=== PATIENT | male | born 1965 | race Caucasian/White ===

== ENCOUNTER 2016-03-22 10:43 | Inpatient (IN) | payer MEDICAID, OTHER ==
[2016-03-22] VITALS (7 sets, daily range): BP systolic 120–160; BP diastolic 82–90
[~2016-03-22] VITALS: Ht 180.3 cm; Wt 115.3 kg
[2016-03-22 11:15] LABS: ANION GAP 12 mmol/L (8-16); CALCIUM, TOTAL 8.2 mg/dL (8.8-10.5); CARBON DIOXIDE 26 mmol/L (22-29); CHLORIDE 100 mmol/L (98-107); CREATININE 0.91 mg/dL (0.60-1.30); GLOMERULAR FILTR. RATE CALC > 60 mL/min (>60); POTASSIUM 3.9 mmol/L (3.5-5.1); SODIUM SERUM 138 mmol/L (136-145); UREA NITROGEN, BLOOD 15 mg/dL (7-18)
[2016-03-22 11:18] LABS: BASOPHILS % (AUTO) 0.7 % (0.0-2.0); EOSINOPHILS % (AUTO) 0.3 % (1.0-6.0); HEMATOCRIT 46.2 % (41-53); HEMOGLOBIN 15.4 g/dL (13.5-17.5); LYMPHOCYTES # (AUTO) 3.2 K/uL (1.0-4.8); LYMPHOCYTES % (AUTO) 43.1 % (22.0-44.0); MEAN CORPUSCULAR HEMOGLOBIN 29.7 pg (26.0-34.0); MEAN CORPUSCULAR HGB CONC 33.3 G/dL (31.0-37.0); MEAN CORPUSCULAR VOLUME 89 fL (80-100); MONOCYTES # (AUTO) 0.6 K/uL (0.1-1.0); MONOCYTES % (AUTO) 8.3 % (2.0-9.0); NEUTROPHILS # (AUTO) 3.5 K/uL (1.8-7.7); NEUTROPHILS % (AUTO) 47.6 % (40.0-70.0); PLATELET COUNT (AUTO) 193 K/uL (150-450); RED BLOOD CELL COUNT(AUTO) 5.17 MIL/uL (4.50-5.90); RED CELL DISTRIBUTION WIDTH 15.1 % (11.5-14.5); WHITE BLOOD COUNT (AUTO) 7.5 K/uL (4.5-11.0)
[2016-03-22 11:21] LABS: ALANINE AMINOTRANSFERASE 140 U/L (12-78); ALBUMIN 3.8 g/dL (3.4-5.0); ASPARTATE AMINOTRANSFERASE 70 U/L (15-37); BILIRUBIN,TOTAL 0.4 mg/dL (0.1-1.0); TOTAL PROTEIN, SERUM 7.8 g/dL (6.4-8.2)
[2016-03-22] MEDS ORDERED: LORazepam 1 MG TABLET PO ONE (12:00)
[2016-03-22] MEDS ORDERED: HALOPERIDOL 5 MG TABLET PO PRN (12:30)
[2016-03-22] MEDS: LORazepam 2 MG TABLET PO PRN (13:37)
[2016-03-22] MEDS ORDERED: LORazepam 2 MG TABLET PO ONE (15:45)
[2016-03-22] MEDS ORDERED: INFLUENZA VIRUS VACCINE QVS 2016-17 (3YR+)/PF 60 MCG/0.5 ML SYRINGE IM ONE (17:30)
[2016-03-22] MEDS: CloNIDine HCL 0.1 MG TABLET PO PRN (18:06)
[2016-03-22] MEDS ORDERED: LORazepam 2 MG TABLET PO PRN (19:00)
[2016-03-22] MEDS: ZOLPIDEM TARTRATE 10 MG TABLET PO PRN (20:21)
[2016-03-23] VITALS (7 sets, daily range): BP systolic 119–143; BP diastolic 69–86
[2016-03-23] MEDS: LORazepam 2 MG TABLET PO PRN (06:43)
[2016-03-23] MEDS ORDERED: LORazepam 2 MG TABLET PO PRN (07:00)
[2016-03-23] MEDS ORDERED: ACETAMINOPHEN 325 MG TABLET PO PRN (08:15)
[2016-03-23] MEDS: MULTIVITAMINS WITH MINERALS, THERAPEUTIC TABLET PO SCH (08:41)
[2016-03-23] MEDS: FLUoxetine HCL 20 MG CAPSULE PO SCH (08:41)
[2016-03-23] MEDS: MAGNESIUM OXIDE 400 MG TABLET PO SCH (08:41)
[2016-03-23] MEDS: GABAPENTIN 300 MG CAPSULE PO SCH ×3 (08:41→16:48)
[2016-03-23] MEDS: FOLIC ACID 1 MG TABLET PO SCH (08:41)
[2016-03-23] MEDS: LORazepam 2 MG TABLET PO SCH ×4 (08:41→20:27)
[2016-03-23] MEDS: THIAMINE HCL 100 MG TABLET PO SCH (08:41)
[2016-03-23] MEDS: NICOTINE 7 MG/24 HOUR PATCH TD SCH (08:42)
[2016-03-23] MEDS: IBUPROFEN 400 MG TABLET PO PRN (08:48)
[2016-03-23] MEDS: ZOLPIDEM TARTRATE 10 MG TABLET PO PRN (21:05)
[2016-03-24] VITALS (9 sets, daily range): BP systolic 109–158; BP diastolic 68–111
[2016-03-24 08:24] LABS: HEMOGLOBIN A1C 5.9 % (4.5-6.2)
[2016-03-24] MEDS: FOLIC ACID 1 MG TABLET PO SCH (08:28)
[2016-03-24] MEDS: MAGNESIUM OXIDE 400 MG TABLET PO SCH (08:28)
[2016-03-24] MEDS: FLUoxetine HCL 20 MG CAPSULE PO SCH (08:28)
[2016-03-24] MEDS: LORazepam 2 MG TABLET PO SCH ×4 (08:28→20:11)
[2016-03-24] MEDS: THIAMINE HCL 100 MG TABLET PO SCH (08:28)
[2016-03-24] MEDS: NICOTINE 7 MG/24 HOUR PATCH TD SCH (08:28)
[2016-03-24] MEDS: MULTIVITAMINS WITH MINERALS, THERAPEUTIC TABLET PO SCH (08:28)
[2016-03-24 08:38] LABS: CHOL/HDL RATIO 2.8 (4.2-7.3); THYROID STIMULATING HORMONE 4.63 uIU/mL (0.36-3.74)
[2016-03-24] MEDS: GABAPENTIN 300 MG CAPSULE PO SCH ×3 (09:31→16:08)
[2016-03-24] MEDS: IBUPROFEN 400 MG TABLET PO PRN (11:37)
[2016-03-24] MEDS: CloNIDine HCL 0.1 MG TABLET PO PRN (16:16)
[2016-03-24] MEDS: ZOLPIDEM TARTRATE 10 MG TABLET PO PRN (21:18)
[2016-03-25 01:50] VITALS: BP 125/73
[2016-03-25 01:52] VITALS: BP 125/73
[2016-03-25] MEDS ORDERED: LORazepam 1 MG TABLET PO PRN (07:00)
[2016-03-25 08:39] VITALS: BP 112/68
[2016-03-25 08:40] VITALS: BP 112/68
[2016-03-25] MEDS: NICOTINE 7 MG/24 HOUR PATCH TD SCH (09:07)
[2016-03-25] MEDS: LORazepam 1 MG TABLET PO SCH ×4 (09:07→20:13)
[2016-03-25] MEDS: FOLIC ACID 1 MG TABLET PO SCH (09:07)
[2016-03-25] MEDS: MAGNESIUM OXIDE 400 MG TABLET PO SCH (09:08)
[2016-03-25] MEDS: FLUoxetine HCL 20 MG CAPSULE PO SCH (09:08)
[2016-03-25] MEDS: THIAMINE HCL 100 MG TABLET PO SCH (09:08)
[2016-03-25] MEDS: GABAPENTIN 300 MG CAPSULE PO SCH ×3 (09:08→16:04)
[2016-03-25] MEDS: MULTIVITAMINS WITH MINERALS, THERAPEUTIC TABLET PO SCH (09:08)
[2016-03-25 11:08] LABS: HEPATITIS Bs ANTIGEN SCREEN P Negative (Negative); HEPATITIS C AB SCREEN <0.1 s/co ratio (0.0-0.9)
[2016-03-25 16:00] VITALS: BP 126/69
[2016-03-25 16:05] VITALS: BP 126/69
[2016-03-25] MEDS: ZOLPIDEM TARTRATE 10 MG TABLET PO PRN (21:13)
[2016-03-26 07:00] VITALS: BP 141/89
[2016-03-26 07:13] VITALS: BP 141/89
[2016-03-26 08:00] VITALS: BP 137/87
[2016-03-26 08:41] VITALS: BP 137/87
[2016-03-26] MEDS: FLUoxetine HCL 20 MG CAPSULE PO SCH (09:09)
[2016-03-26] MEDS: FOLIC ACID 1 MG TABLET PO SCH (09:09)
[2016-03-26] MEDS: MAGNESIUM OXIDE 400 MG TABLET PO SCH (09:09)
[2016-03-26] MEDS: THIAMINE HCL 100 MG TABLET PO SCH (09:09)
[2016-03-26] MEDS: MULTIVITAMINS WITH MINERALS, THERAPEUTIC TABLET PO SCH (09:09)
[2016-03-26] MEDS: NICOTINE 7 MG/24 HOUR PATCH TD SCH (09:09)
[2016-03-26] MEDS: LORazepam 1 MG TABLET PO PRN ×2 (09:09→13:10)
[2016-03-26] MEDS: GABAPENTIN 300 MG CAPSULE PO SCH ×3 (09:09→16:49)
[2016-03-26 16:10] VITALS: BP 140/85
[2016-03-26 16:15] VITALS: BP 140/85
[2016-03-27 07:10] VITALS: BP 140/90
[2016-03-27 07:12] VITALS: BP 140/90
[2016-03-27 08:38] VITALS: BP 132/78
[2016-03-27] MEDS: MAGNESIUM OXIDE 400 MG TABLET PO SCH (09:39)
[2016-03-27] MEDS: FLUoxetine HCL 20 MG CAPSULE PO SCH (09:39)
[2016-03-27] MEDS: GABAPENTIN 300 MG CAPSULE PO SCH ×2 (09:39→12:57)
[2016-03-27] MEDS: FOLIC ACID 1 MG TABLET PO SCH (09:39)
[2016-03-27] MEDS: THIAMINE HCL 100 MG TABLET PO SCH (09:39)
[2016-03-27] MEDS: MULTIVITAMINS WITH MINERALS, THERAPEUTIC TABLET PO SCH (09:39)
[2016-03-27] MEDS: NICOTINE 7 MG/24 HOUR PATCH TD SCH (09:43)
[2016-03-27] MEDS ORDERED: FLUO-191 PO (12:37)
[2016-03-27] MEDS ORDERED: GABA-531 PO (12:37)
== END 2016-03-27 13:45 | disposition home or self-care (01) | DRG 751 ==
LOC: EMS 10:46 → B2S 15:02
PROVIDERS: ADMIT Psychiatry & Neurology Psychiatry; ATTEND Psychiatry & Neurology Psychiatry
PROC: HZ34ZZZ Individual Counseling for Substance Abuse Treatment, Interpersonal (ICD-10-PCS; principal; 2016-03-22)
PROC: HZ2ZZZZ Detoxification Services for Substance Abuse Treatment (ICD-10-PCS; 2016-03-22)
DX: F33.2 Major depressive disorder, recurrent severe without psychotic features (principal); R45.851 Suicidal ideations; F10.20 Alcohol dependence, uncomplicated; Y90.8 Blood alcohol level of 240 mg/100 ml or more; F60.3 Borderline personality disorder; F41.9 Anxiety disorder, unspecified; R74.0 Nonspecific elevation of levels of transaminase and lactic acid dehydrogenase [LDH]; F19.10 Other psychoactive substance abuse, uncomplicated; Z71.51 Drug abuse counseling and surveillance of drug abuser; Z71.41 Alcohol abuse counseling and surveillance of alcoholic
CPT/HCPCS: 80074; 83036; 84443; 99285; G0480